=== PATIENT | female | born 1940 | race Caucasian/White ===

== ENCOUNTER → 2018-05-26 | Day surgery (SDC) | payer OTHER ==
[~2018-05-26] VITALS: Ht 167.6 cm; Wt 80.7 kg
[~2018-05-26] MED LIST: 'CLONIDINE0.1 MG PO; ACEBUTOLOL HYD200 MG PO; ATORVASTATIN CA20 M1 PO; BUPROPION HCL300 MG PO; CANDESARTAN PO; CLOPIDOGREL75 MG PO; FISH OIL 1,0001 EAC5 PO; FLAX OIL1000 M1 PO; LEVOTHYROXINE125 MCG PO; MONTELUKAST SOD10 MG PO; MULTIPLE VITAM1 EAC1 PO; OXYBUTYNIN CHLOR5 M1 PO; PREVACID15 M1 PO; PROVENTIL HFA6.7 GM INH; VITAMIN D31000 UNI1 PO
[2018-05-26 09:00] VITALS: BP 153/72
[2018-05-26 09:36] VITALS: BP 88/38
[2018-05-26 09:51] VITALS: BP 120/57
[2018-05-26 10:06] VITALS: BP 122/61
[2018-05-26 10:17] VITALS: BP 140/68
== END | disposition home or self-care (01) ==
LOC: SDC 05-23 14:45
DX: K29.70 Gastritis, unspecified, without bleeding (principal); K21.0 Gastro-esophageal reflux disease with esophagitis; K44.9 Diaphragmatic hernia without obstruction or gangrene; I10 Essential (primary) hypertension; J45.909 Unspecified asthma, uncomplicated; E89.0 Postprocedural hypothyroidism; F32.9 Major depressive disorder, single episode, unspecified; F41.8 Other specified anxiety disorders; Z80.9 Family history of malignant neoplasm, unspecified; Z98.890 Other specified postprocedural states; Z96.641 Presence of right artificial hip joint; Z90.5 Acquired absence of kidney; Z98.41 Cataract extraction status, right eye; Z98.42 Cataract extraction status, left eye; Z87.891 Personal history of nicotine dependence; Z86.73 Personal history of transient ischemic attack (TIA), and cerebral infarction without residual deficits; Z90.710 Acquired absence of both cervix and uterus; Z88.2 Allergy status to sulfonamides; Z88.8 Allergy status to other drugs, medicaments and biological substances; Z88.6 Allergy status to analgesic agent; Z91.040 Latex allergy status; Z88.5 Allergy status to narcotic agent; Z91.010 Allergy to peanuts; Z79.899 Other long term (current) drug therapy; Z80.0 Family history of malignant neoplasm of digestive organs